=== PATIENT | female | born 1950 | race Caucasian/White ===

== ENCOUNTER → 2017-08-31 | Outpatient (CLI) | payer MEDICARE | END | disposition home or self-care (01) | LOC: CFH 11:03 | PROVIDERS: ATTEND Family Medicine | DX: Z12.31 Encounter for screening mammogram for malignant neoplasm of breast (principal) | CPT/HCPCS: 77063; 77067 ==

== ENCOUNTER 2018-08-25 10:44 | Emergency (ER) | payer MEDICARE ==
[~2018-08-25] VITALS: Ht 170.2 cm; Wt 98.0 kg
[2018-08-25] MEDS ORDERED: TUMERIC PO (11:01)
[2018-08-25] MEDS ORDERED: ASPI-496 PO (11:01)
[2018-08-25] MEDS ORDERED: MULT-658 PO (11:01)
[2018-08-25] MEDS ORDERED: FISH OIL PO (11:01)
[2018-08-25] MEDS ORDERED: FLAXSEED (11:01)
[2018-08-25] MEDS ORDERED: POTA20TA6 PO (11:01)
[2018-08-25] MEDS ORDERED: CALCIUM+D PO (11:01)
[2018-08-25] MEDS ORDERED: MAGNESIUM PO (11:01)
[2018-08-25] MEDS ORDERED: VITAMIN B12 PO (11:01)
[2018-08-25] MEDS ORDERED: VITAMIN D PO (11:01)
[2018-08-25] MEDS ORDERED: DIOVAN PO (11:01)
--- NOTE | 2018-08-25 11:05 | NUR ---
PT BIB [facility] AFTER PALPITATIONS AT 830 THIS AM WITH HX OF SAME ON ONDAY. PT TOOK ONE [employer] [facility] [employer] AND [facility] GAVE 3 MORE. PT DENIED ANY CP BUT HAD DIZZINESS. PT ON MONITOR.
[2018-08-25 11:36] LABS: BASOPHILS # (AUTO) 0.02 x10^3/uL (0-0.1); BASOPHILS % (AUTO) 0 % (0-1); EOSINOPHILS # (AUTO) 0.05 x10^3/uL (0-0.4); EOSINOPHILS % (AUTO) 1 % (1-7); LYMPHOCYTES # (AUTO) 0.75 x10^3/uL (1-3.4); LYMPHOCYTES % (AUTO) 14 % (22-44); MD NO; MEAN CORPUSCULAR HEMOGLOBIN 32.1 pg (27.0-34.8); MEAN CORPUSCULAR HGB CONC 34.4 g/dL (32.4-35.8); MEAN CORPUSCULAR VOLUME 93.3 fL (80-100); MEAN PLATELET VOLUME 8.5 fL (7.4-10.4); MONOCYTES # (AUTO) 0.44 x10^3/uL (0.2-0.8); MONOCYTES % (AUTO) 8 % (2-9); NEUTROPHILS # (AUTO) 4.22 x10^3/uL (1.8-6.8); NEUTROPHILS % (AUTO) 77 % (42-75); PLATELET COUNT 198 x10^3/uL (130-400); RED BLOOD COUNT 4.67 x10^6/uL (3.82-5.3); RED CELL DISTRIBUTION WIDTH 12.9 % (9.6-15.2)
[2018-08-25 11:49] LABS: CHLORIDE 110 mmol/L (98-107)
[2018-08-25 12:06] LABS: ALANINE AMINOTRANSFERASE 58 U/L (12-78); ALBUMIN 3.6 g/dL (3.4-5.0); ALKALINE PHOSPHATASE 74 U/L (45-117); ANION GAP 9 mmol/L (5-15); CALCIUM 9.2 mg/dL (8.5-10.1); CREATININE 0.84 mg/dL (0.55-1.02); TOTAL PROTEIN 7.2 g/dL (6.4-8.2)
[2018-08-25 12:54] VITALS: BP 124/78
== END 2018-08-25 13:00 | disposition home or self-care (01) ==
LOC: ED 12:54
DX: I47.1 Supraventricular tachycardia (principal); I10 Essential (primary) hypertension; R42 Dizziness and giddiness
CPT/HCPCS: 36415; 71045; 80053; 84443; 85025; 93005; 99284

== ENCOUNTER → 2019-06-03 | Outpatient (CLI) | payer MEDICARE ==
[~2019-06-03] MED LIST: ASPI-496 PO; CALCIUM+D PO; DIOVAN PO; FISH OIL PO; FLAXSEED; MAGNESIUM PO; MULT-658 PO; POTA20TA6 PO; TUMERIC PO; VITAMIN B12 PO; VITAMIN D PO
== END | disposition home or self-care (01) ==
LOC: RAD 12:19
PROVIDERS: ATTEND Internal Medicine Gastroenterology
DX: K57.30 Diverticulosis of large intestine without perforation or abscess without bleeding (principal); F10.20 Alcohol dependence, uncomplicated; Z86.010 Personal history of colon polyps
CPT/HCPCS: 74280

== ENCOUNTER 2020-08-14 05:50 | Day surgery (SDC) | payer MEDICARE ==
[~2020-08-14] VITALS: Ht 170.2 cm; Wt 99.1 kg
[2020-08-14 06:07] VITALS: BP 143/86
[2020-08-14] MEDS ORDERED: RIVA20TA PO (06:15)
[2020-08-14] MEDS ORDERED: VALS1TAB26 PO (06:15)
[2020-08-14] MEDS ORDERED: METO25TA35 PO (06:15)
[2020-08-14] MEDS ORDERED: MAGN400T36 PO (06:23)
[2020-08-14] MEDS ORDERED: Vitamin E PO (06:23)
[2020-08-14] MEDS ORDERED: Milk Thistle PO (06:23)
[2020-08-14] MEDS ORDERED: SODIUM CHLORIDE 0.9% 1,000 ML IV SCH (06:30)
[2020-08-14 06:47] LABS: BASOPHILS % (AUTO) 1 % (0-1); EOSINOPHILS % (AUTO) 2 % (1-7); LYMPHOCYTES % (AUTO) 20 % (22-44); MEAN CORPUSCULAR HEMOGLOBIN 32.1 pg (27.0-34.8); MEAN CORPUSCULAR HGB CONC 34.9 g/dL (32.4-35.8); MEAN PLATELET VOLUME 8.3 fL (7.4-10.4); MONOCYTES % (AUTO) 11 % (2-9); NEUTROPHILS % (AUTO) 66 % (42-75); PLATELET COUNT 184 x10^3/uL (130-400); RED BLOOD COUNT 4.24 x10^6/uL (3.82-5.3)
[2020-08-14 07:01] LABS: ALANINE AMINOTRANSFERASE 25 U/L (12-78); ANION GAP 9 mmol/L (5-15); CALCIUM 9.3 mg/dL (8.5-10.1); CHLORIDE 108 mmol/L (98-107); CREATININE 0.71 mg/dL (0.55-1.02)
[2020-08-14 07:03] LABS: ALKALINE PHOSPHATASE 79 U/L (45-117); TOTAL PROTEIN 7.9 g/dL (6.4-8.2)
[2020-08-14] MEDS ORDERED: MIDAZOLAM 1 MG/ML, 5ML ONE (07:32)
[2020-08-14] MEDS ORDERED: ISOPROTERENOL 0.2MG/ML, 5ML ONE (07:32)
[2020-08-14] MEDS ORDERED: LIDOCAINE 2%, 20ML ONE (07:32)
[2020-08-14] MEDS ORDERED: FENTANYL PF 100 MCG/2ML ONE (07:32)
[2020-08-14 07:33] LABS: MD SCAN
[2020-08-14] MEDS ORDERED: ADENOSINE 6 MG/2 ML ONE (08:13)
[2020-08-14] MEDS ORDERED: ACETAMINOPHEN 325 MG TABLET PO PRN (10:00)
[2020-08-14] MEDS ORDERED: RIVAROXABAN 20 MG TABLET PO SCH (21:00)
[2020-08-15] MEDS ORDERED: HYDROCHLOROTHIAZIDE PO SCH (09:00)
[2020-08-15] MEDS ORDERED: VALSARTAN PO SCH (09:00)
[2020-08-15] MEDS ORDERED: VITAMIN E PO SCH (09:00)
[2020-08-15] MEDS ORDERED: TEMPLATE NON-FORMULARY MED. (Magnesium Oxide (Magnesium) 1 TAB) PO SCH (09:00)
[2020-08-15] MEDS ORDERED: [UNRECOGNIZED DRUG - OTHER] PO SCH (09:00)
[2020-08-15] MEDS ORDERED: MILK THISTLE PO SCH (09:00)
[2020-08-15] MEDS ORDERED: MULTIVITAMIN 1 TABLET PO SCH (09:00)
[2020-08-15] MEDS ORDERED: POTASSIUM CHLORIDE 20 MEQ TAB.ER.PRT PO SCH (09:00)
== END 2020-08-14 14:28 | disposition home or self-care (01) ==
LOC: CACL 05:50
PROVIDERS: ATTEND Internal Medicine Cardiovascular Disease
DX: I47.1 Supraventricular tachycardia (principal); I48.92 Unspecified atrial flutter; I10 Essential (primary) hypertension; Z79.899 Other long term (current) drug therapy; Z88.2 Allergy status to sulfonamides; Z88.8 Allergy status to other drugs, medicaments and biological substances
CPT/HCPCS: 36415; 71046; 76937; 80053; 85025; 93613; 93621; 93623; 93653; C1730; C1894; C2630; J2250; J3010; J0153

== ENCOUNTER 2020-08-16 10:56 | Observation (INO) | payer MEDICARE ==
[~2020-08-16] VITALS: Ht 170.2 cm; Wt 99.6 kg
[~2020-08-16 10:56] MED LIST changes: +MAGN400T36 PO; +METO25TA35 PO; +Milk Thistle PO; +RIVA20TA PO; +VALS1TAB26 PO; +Vitamin E PO
--- NOTE | 2020-08-16 11:08 | NUR ---
PT BIB EMS FOR CHEST PAIN AND PRESSURE WHICH SHE SAID WAS A 7/10. PT HAD A ABLATION ON THURSDAY. PT STATED THAT THIS MORNING AT 0930 SHE STARTED TO FEEL NAUSEOUS. SHE WENT TO AND SHE WAS SENT TO ER. 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 PT REPORTS THAT HER PAIN FROM FROM A 7 TO A 2. EKG COMPLETE. PT CONNECTED TO ALL MONITORING EQUIPMENT.
[2020-08-16] MEDS ORDERED: ASPIRIN 81 MG TABLET CHEW ONE (11:15)
[2020-08-16] MEDS ORDERED: MORPHINE SULFATE 4 MG/ML, 1ML ONE (11:15)
[2020-08-16] MEDS ORDERED: ONDANSETRON 2MG/ML, 2ML ONE (11:15)
[2020-08-16] MEDS: MORPHINE SULFATE 4 MG/ML, 1ML IVPush PRN ×2 (11:18→14:01)
[2020-08-16 11:28] LABS: BASOPHILS % (AUTO) 2 % (0-1); EOSINOPHILS % (AUTO) 2 % (1-7); LYMPHOCYTES % (AUTO) 20 % (22-44); MEAN CORPUSCULAR HEMOGLOBIN 31.6 pg (27.0-34.8); MEAN CORPUSCULAR HGB CONC 34.4 g/dL (32.4-35.8); MEAN PLATELET VOLUME 8.5 fL (7.4-10.4); MONOCYTES % (AUTO) 11 % (2-9); NEUTROPHILS % (AUTO) 66 % (42-75); PLATELET COUNT 190 x10^3/uL (130-400); RED BLOOD COUNT 4.35 x10^6/uL (3.82-5.3); RED CELL DISTRIBUTION WIDTH 14.6 % (9.6-15.2)
[2020-08-16 11:30] LABS: MD NO
[2020-08-16] MEDS ORDERED: ONDANSETRON 2MG/ML, 2ML IVPush ONE (11:30)
[2020-08-16] MEDS ORDERED: SODIUM CHLORIDE FLUSH 10ML SYR IVF ONE (11:30)
[2020-08-16] MEDS ORDERED: ASPIRIN 81 MG TABLET CHEW PO ONE (11:30)
[2020-08-16 11:40] LABS: ALBUMIN 3.9 g/dL (3.4-5.0); ANION GAP 6 mmol/L (5-15); CALCIUM 9.6 mg/dL (8.5-10.1); CHLORIDE 107 mmol/L (98-107); CREATININE 0.79 mg/dL (0.55-1.02)
[2020-08-16 11:44] LABS: TROPONIN I 0.024 ng/mL (0.000-0.045)
--- NOTE | 2020-08-16 11:57 | NUR ---
PT PLACED ON 2 LITERS VIA NC. PT REPORTS PAIN IMPROVEMENT "IT CALMED THINGS DOWN A BIT"
[2020-08-16] MEDS ORDERED: hydrALAzine 20 MG/ML, 1ML IVPush PRN (13:30)
[2020-08-16] MEDS ORDERED: ACETAMINOPHEN 325 MG TABLET PO PRN (13:30)
[2020-08-16] MEDS ORDERED: DOCUSATE 100 MG CAPSULE PO PRN (13:30)
[2020-08-16] MEDS ORDERED: BISACODYL 10 MG SUPP PR PRN (13:30)
[2020-08-16] MEDS ORDERED: ONDANSETRON 2MG/ML, 2ML IVPush PRN (13:30)
[2020-08-16] MEDS ORDERED: ENALAPRILAT 1.25 MG/ML, 2ML IVPush PRN (13:30)
[2020-08-16] MEDS ORDERED: POLYETHYLENE GLYCOL 17 GM PACKET PO PRN (13:30)
[2020-08-16] MEDS ORDERED: MELATONIN 5 MG TABLET PO PRN (13:30)
[2020-08-16] MEDS ORDERED: NITROGLYCERIN 0.4 MG BOTTLE (25 TABS) SL PRN (13:30)
[2020-08-16] MEDS ORDERED: ONDANSETRON ODT 4 MG PO PRN (13:30)
--- NOTE | 2020-08-16 13:50 | NUR ---
ASSUMED PT CARE FROM MADAI COOPER. PT CONNECTED TO ALL MONITORING, RESTING IN [facility] AT THIS TIME, BIN[facility].
[2020-08-16 14:40] VITALS: BP 131/81
[2020-08-16 17:02] LABS: TROPONIN I 0.023 ng/mL (0.000-0.045)
[2020-08-16] MEDS ORDERED: RIVAROXABAN 20 MG TABLET ONE (18:23)
[2020-08-16 20:25] VITALS: BP 118/77
[2020-08-16] MEDS ORDERED: RIVAROXABAN 20 MG TABLET PO SCH (21:00)
[2020-08-17 02:00] VITALS: BP 128/82
[2020-08-17 07:10] VITALS: BP 116/66
[2020-08-17] MEDS ORDERED: [UNRECOGNIZED DRUG - OTHER] PO SCH (09:00)
[2020-08-17] MEDS ORDERED: VALSARTAN PO SCH (09:00)
[2020-08-17] MEDS ORDERED: LOSARTAN 100 MG TAB PO SCH (09:00)
[2020-08-17] MEDS ORDERED: MULTIVITAMIN 1 TABLET PO SCH (09:00)
[2020-08-17] MEDS ORDERED: POTASSIUM CHLORIDE 20 MEQ TAB.ER.PRT PO SCH (09:00)
[2020-08-17] MEDS ORDERED: HYDROCHLOROTHIAZIDE PO SCH (09:00)
[2020-08-17] MEDS ORDERED: MAGNESIUM OXIDE 400 MG TABLET PO SCH (09:00)
[2020-08-17] MEDS ORDERED: HYDROCHLOROTHIAZIDE 25 MG TABLET PO SCH (09:00)
[2020-08-17] MEDS ORDERED: METO25TA35 PO (11:14)
== END 2020-08-17 11:44 | disposition home or self-care (01) ==
LOC: ED 11:47 → EDIP 14:00 → INTOOBSV 14:00 → 5SO 14:24 → DCLOUNGE 08-17 11:37
PROVIDERS: ADMIT Internal Medicine; ATTEND Internal Medicine
DX: R07.89 Other chest pain (principal); R00.2 Palpitations; I47.1 Supraventricular tachycardia; I48.92 Unspecified atrial flutter; I48.91 Unspecified atrial fibrillation; I10 Essential (primary) hypertension; D68.69 Other thrombophilia; Z79.899 Other long term (current) drug therapy; Z90.710 Acquired absence of both cervix and uterus; Z79.01 Long term (current) use of anticoagulants
CPT/HCPCS: 36415; 71045; 80048; 82040; 83735; 83880; 84443; 84484; 85025; 85379; 93005; 96374; 96375; 99285; G0378; J2270; J2405

== ENCOUNTER 2020-10-23 15:26 | Outpatient (CLI) | payer MEDICARE | END 2020-10-23 23:59 | disposition home or self-care (01) | LOC: CVU 15:26 | PROVIDERS: ATTEND Internal Medicine Cardiovascular Disease | DX: I08.8 Other rheumatic multiple valve diseases (principal); I47.1 Supraventricular tachycardia | CPT/HCPCS: 93306 ==